=== PATIENT | female | born 1990 | race Two or more races ===

== ENCOUNTER 2018-05-03 15:20 | Outpatient (RCR) | payer SELFPAY | END 2018-05-04 | disposition home or self-care (01) | LOC: WCC 15:20 | DX: T81.32XD Disruption of internal operation (surgical) wound, not elsewhere classified, subsequent encounter (principal); Z41.1 Encounter for cosmetic surgery; X58.XXXD Exposure to other specified factors, subsequent encounter; F17.200 Nicotine dependence, unspecified, uncomplicated | CPT/HCPCS: G0277 ×2 ==

== ENCOUNTER 2018-05-07 10:30 | Outpatient (RCR) | payer SELFPAY | END 2018-06-04 | disposition home or self-care (01) | LOC: WCC 10:30 | DX: T81.32XD Disruption of internal operation (surgical) wound, not elsewhere classified, subsequent encounter (principal); Z41.1 Encounter for cosmetic surgery | CPT/HCPCS: G0277 ×9 ==